=== PATIENT | male | born 1990 | race Caucasian/White ===

== ENCOUNTER → 2016-10-30 | Outpatient (CLI) | payer OTHER ==
--- NOTE | 2016-10-30 09:38 | RADIOLOGY REPORT PS360 ---
[id number] VIEW COMP.-LT HISTORY: LEFT SHOULDER PAIN ORDERING PHYSICIAN: Ralph Lorenzana MD PATIENT AGE: 26 years COMPARISON: None FINDINGS: AP and transthoracic lateral views are obtained No fracture or dislocation. No lytic or blastic change. There is normal mineralization. The joint spaces are well-preserved. No significant degenerative/arthritic changes. No erosive changes evident. IMPRESSION: Negative, no acute finding
== END ==
LOC: RAD 09:02
DX: M25.512 Pain in left shoulder (principal)

== ENCOUNTER 2017-04-21 14:26 | Emergency (ER) | payer OTHER ==
[~2017-04-21] VITALS: Ht 172.7 cm; Wt 95.3 kg
[2017-04-21] MEDS ORDERED: LOPRESSOR 25MG.25 MG PO (14:41)
[2017-04-21] MEDS ORDERED: PANTOPRAZOLE40 M1 PO (14:42)
[2017-04-21] MEDS ORDERED: ATORVASTATIN CA10 MG PO (14:43)
--- NOTE | 2017-04-21 15:12 | Urgent Treatment Center Report ---
History of Present Issue Date/Time Seen by Provider 04/21/17 1503 Visit Reason Pt arrived:Walked Presenting Problem:PT IS C/O EAR PAIN, SORE THROAT AND MUSCLE ACHES THAT STARTED 2 DAYS AGO Location if Accident: Onset of symptoms date/time:/ or onset unknown for:MEDICAL HX UNKNOWN Have you (or family members/close friends) recently traveled outside the [place]? N If Yes, where/when: Have you had exposure to infectious disease within the past month? TB? Other? Specify: Patient state that he has not been feeling well for several days now States that he has been having pain in both ears, sorethroat and muscle aches and pain for several days now States that he feels feverish and over all not feeling well State that he has been having pain in sinuses ALLERGIES Coded Allergies: Penicillins (04/21/17) Home Medications Reported Medications Metoprolol Tartrate (Lopressor) 12.5 MG PO BID Pantoprazole Sodium (Pantoprazole) 40 MG PO DAILY ATORVASTATIN CALCIUM (ATORVASTATIN 10MG) 10 MG PO QHS History Medical History General CAD? No Angina: No [place]: No Hypertension? Yes Hyperlipidemia? No CHF? No DVT? No PE? No COPD? No Asthma? No Anemia? No GERD? No Gastric ulcers? No GI Bleed? No Hernia? No Thyroid Problems? No Hypothyroidism? No CVA? No Seizures? No Diabetes? No Renal Insuffiency? No UTI? No Stones? No BPH? No GB Disease: No Nephritic Syndrome? No Asplenia? No Hepatitis? No Sickle Cell Disease? No Arthritis? No Migraines? No Cataracts? No Glaucoma? No MRSA? No HIV? No TB? No Anxiety? No Depression? No Cancer? No More? No Immunization HX DT/Tetanus > 10 Years Ago Surgical Hx Previous Surgery?N Social History Smoking Hx Smoker: Never Smoker Tobacco: No Alcohol Alcohol: No Review of Systems All Other Systems Reviewed and Negative ENT ear pain, nose discharge, nose congestion, throat pain, throat swelling. Musculoskeletal joint pain, muscle pain Physical Exam Vital Signs Vital Signs Date Time Temp Pulse Resp B/P Pulse O2 O2 Flow FiO2 Ox Delivery Rate 04/21 1438 97.9 81 18 136/77 97 General Appearance normal appearance, WD/WN, no apparent distress Ear, Nose, Throat sinus pain/drainage, tonsillar swelling, throat red swollen, sinuses tender greenish colored drainage Respiratory Status Yes: trachea midline, chest symmetrical, non tender chest. No: respiratory distress. 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 No Results/Orders Laboratory Tests 04/21/17 1500: Group A Strep Screen NOT DETECTED Orders Procedure Date/time Status [facility] STREP SCREEN 04/21 1512 Complete Departure Departure Time of Disposition 1530 Disposition DC Home or Self Care(routine) Clinical Impression Primary Impression: Upper respiratory infection Qualifiers: URI type: unspecified URI Qualified Code: J06.9 - Acute upper respiratory infection, unspecified Condition STABLE Referrals Javan Danielson MD (Family): 3 Days-Call Office Patient Instructions DI for Sinusitis, Sinusitis, Sore Throat Additional Instructions * Monitor Temp. Tylenol and/or Ibuprofen as needed. ER if fever is no less than 101 despite alternating Tylenol and Ibuprofen * Encourage fluids, water, Gatorade, powerade, pedialyte if /toddler/or child * Warm salt water gargles for throat irritation *Warm fluids *Sore throat lozenges *Sleep elevated *humidifier or vaporizer *Flonase 2 sprays each nostril daily but may take 2-3 days to notice improvement with it Follow up IMMEDIATELY for new or worsening of symptoms OR no noticeable improvement over the next 48-72 hours. 911 immediately for any life threatening symptoms such as chest pain or difficulty breathing Discharge Counseling Counseled pt/family regarding diagnosis, test results, medications/RX, home care, follow up needs Prescriptions Current Visit Scripts Azithromycin (Zithromycin (Z-YVONNE) 250MG Tab) 250 MG PO DAILY #6 TAB TAKE TWO (2) TABLETS ON DAY 1, THEN ONE (1) TABLET DAY #2 THRU #5 Fluticasone Propionate (Flonase 50 Mcg Nasal [place]) 2 SPRAY NA DAILY #1 BOT Methylprednisolone (Medrol Dose Yvonne) 4 MG PO UD #1 YVONNE TAKE DIRECTED ON PACKAGING at 1531
--- NOTE | 2017-04-21 15:12 | Urgent Treatment Center Report ---
History of Present Issue Date/Time Seen by Provider 04/21/17 1503 Visit Reason Pt arrived:Walked Presenting Problem:PT IS C/O EAR PAIN, SORE THROAT AND MUSCLE ACHES THAT STARTED 2 DAYS AGO Location if Accident: Onset of symptoms date/time:/ or onset unknown for:MEDICAL HX UNKNOWN Have you (or family members/close friends) recently traveled outside the [place]? N If Yes, where/when: Have you had exposure to infectious disease within the past month? TB? Other? Specify: Patient state that he has not been feeling well for several days now States that he has been having pain in both ears, sorethroat and muscle aches and pain for several days now States that he feels feverish and over all not feeling well State that he has been having pain in sinuses ALLERGIES Coded Allergies: Penicillins (04/21/17) Home Medications Reported Medications Metoprolol Tartrate (Lopressor) 12.5 MG PO BID Pantoprazole Sodium (Pantoprazole) 40 MG PO DAILY ATORVASTATIN CALCIUM (ATORVASTATIN 10MG) 10 MG PO QHS History Medical History General CAD? No Angina: No DC: No Hypertension? Yes Hyperlipidemia? No CHF? No DVT? No PE? No COPD? No Asthma? No Anemia? No GERD? No Gastric ulcers? No GI Bleed? No Hernia? No Thyroid Problems? No Hypothyroidism? No CVA? No Seizures? No Diabetes? No Renal Insuffiency? No UTI? No Stones? No BPH? No GB Disease: No Nephritic Syndrome? No Asplenia? No Hepatitis? No Sickle Cell Disease? No Arthritis? No Migraines? No Cataracts? No Glaucoma? No MRSA? No HIV? No TB? No Anxiety? No Depression? No Cancer? No More? No Immunization HX DT/Tetanus > 10 Years Ago Surgical Hx Previous Surgery?N Social History Smoking Hx Smoker: Never Smoker Tobacco: No Alcohol Alcohol: No Review of Systems All Other Systems Reviewed and Negative ENT ear pain, nose discharge, nose congestion, throat pain, throat swelling. Musculoskeletal joint pain, muscle pain Physical Exam Vital Signs Vital Signs Date Time Temp Pulse Resp B/P Pulse O2 O2 Flow FiO2 Ox Delivery Rate 04/21 1438 97.9 81 18 136/77 97 General Appearance normal appearance, WD/WN, no apparent distress Ear, Nose, Throat sinus pain/drainage, tonsillar swelling, throat red swollen, sinuses tender greenish colored drainage Respiratory Status Yes: trachea midline, chest symmetrical, non tender chest. No: respiratory distress. Cardiovascular normal exam, regular rate/rhythm, no peripheral edema, no gallop Neurologic alert, technical spec II-XII nml as tested, normal exam, no motor/sensory deficits, oriented x 3 Medical Decision Making LABS/Meds/Orders Pt receiving controlled substance in ED? No Results/Orders Laboratory Tests 04/21/17 1500: Group A Strep Screen NOT DETECTED Orders Procedure Date/time Status [facility] STREP SCREEN 04/21 1512 Complete Departure Departure Time of Disposition 1530 Disposition DC Home or Self Care(routine) Clinical Impression Primary Impression: Upper respiratory infection Qualifiers: URI type: unspecified URI Qualified Code: J06.9 - Acute upper respiratory infection, unspecified Condition STABLE Referrals Javan Danielson MD (Family): 3 Days-Call Office Patient Instructions DI for Sinusitis, Sinusitis, Sore Throat Additional Instructions * Monitor Temp. Tylenol and/or Ibuprofen as needed. ER if fever is no less than 101 despite alternating Tylenol and Ibuprofen * Encourage fluids, water, Gatorade, powerade, pedialyte if /toddler/or child * Warm salt water gargles for throat irritation *Warm fluids *Sore throat lozenges *Sleep elevated *humidifier or vaporizer *Flonase 2 sprays each nostril daily but may take 2-3 days to notice improvement with it Follow up IMMEDIATELY for new or worsening of symptoms OR no noticeable improvement over the next 48-72 hours. 911 immediately for any life threatening symptoms such as chest pain or difficulty breathing Discharge Counseling Counseled pt/family regarding diagnosis, test results, medications/RX, home care, follow up needs Prescriptions Current Visit Scripts Azithromycin (Zithromycin (Z-YVONNE) 250MG Tab) 250 MG PO DAILY #6 TAB TAKE TWO (2) TABLETS ON DAY 1, THEN ONE (1) TABLET DAY #2 THRU #5 Fluticasone Propionate (Flonase 50 Mcg Nasal [place]) 2 SPRAY NA DAILY #1 BOT Methylprednisolone (Medrol Dose Yvonne) 4 MG PO UD #1 YVONNE TAKE DIRECTED ON PACKAGING at 1531
[2017-04-21] MEDS ORDERED: FLONASE 50 MCG16 GM (15:30)
[2017-04-21] MEDS ORDERED: ZITHROMAX Z PA250 MG PO (15:30)
[2017-04-21] MEDS ORDERED: MEDROL 4MG. DOSE4 MG PO (15:30)
[2017-04-21 15:43] VITALS: BP 136/77
--- OUTSIDE RECORDS SUMMARY | 2017-04-23 21:39 | External Medical Summary Rpt ---
Author Author , ANNETTE BRYANT Address Unknown Phone [email or web address] Purpose Continuity of Care Document - 04-21-2017 through 2016 Results Labs Lab Lab Date Result Refere Interp Status Commen Order Detail nces retati t Range on Streptococcus pyogenes Ag [Presence] in Unspecified specimen (04-21-2017 15:00) Strepto NOT NOTDETE complet coccus 0[address]ED ed pyogene 15:00 D s Ag [Presen ce] in Unspeci fied specime n
--- OUTSIDE RECORDS SUMMARY | 2017-04-23 21:39 | External Medical Summary Rpt ---
Author Author ANNETTE Sorenson, [employer] Organization [employer] Address Unknown Phone Unavailable Results Streptococcus pyogenes Ag [Presence] in Unspecified specimen Observa Value Referen Units Interpr Notes Date tion ce etation Range Strepto NOT NOTDETE No No LOT # Apr 2 coccus DETECTE CTED informa informa NA EXP 2016 pyogene D tion in tion in DATE NA 3:00 PM s Ag source source [Presen data data ce] in Unspeci fied specime n
--- OUTSIDE RECORDS SUMMARY | 2017-04-23 21:39 | External Medical Summary Rpt ---
Author Author , ANNETTE BRYANT Address Unknown Phone [email or web address] Purpose Continuity of Care Document - 04-21-2017 through 2016 Results Labs Lab Lab Date Result Refere Interp Status Commen Order Detail nces retati t Range on Streptococcus pyogenes Ag [Presence] in Unspecified specimen (04-21-2017 15:00) Strepto NOT NOTDETE complet coccus 0[address] ed pyogene 15:00 D s Ag [Presen ce] in Unspeci fied specime n
--- OUTSIDE RECORDS SUMMARY | 2017-04-23 21:39 | External Medical Summary Rpt ---
Demographics Preferred Language Welsh Marital Status Unknown Roman Catholic Affiliation Unknown Race Unknown Ethnic Group Unknown Author Author , ANNETTE BRYANT Address Unknown Phone Immunization Unable to retrieve immunization data due to connection failure with Immunization Registry. Please try again later.
--- OUTSIDE RECORDS SUMMARY | 2017-04-23 21:39 | External Medical Summary Rpt ---
Demographics Preferred Language Irish Marital Status Unknown Pentecostal Affiliation Unknown Race Unknown Ethnic Group Unknown Author Author , ANNETTE BRYANT Address Unknown Phone Immunization Unable to retrieve immunization data due to connection failure with Immunization Registry. Please try again later.
== END 2017-04-21 15:43 | disposition home or self-care (01) ==
LOC: UTC 14:26
DX: J06.9 Acute upper respiratory infection, unspecified (principal); I10 Essential (primary) hypertension